=== PATIENT | female | born 1955 | race Caucasian/White ===

== ENCOUNTER 2020-09-20 08:30 | Inpatient (IN) | payer OTHER ==
[~2020-09-20] VITALS: Ht 167.6 cm; Wt 89.8 kg
[2020-09-20] MEDS ORDERED: ACID REDUCER20 M1 PO (10:54)
[2020-09-20] MEDS ORDERED: MULTIPLE VITAM1 EACH PO (10:55)
[2020-09-20] MEDS ORDERED: VITAMIN D PO (10:55)
[2020-09-23] MEDS ORDERED: OMEPRAZOLE20 MG (11:49)
[2020-09-23] MEDS ORDERED: VITAMIN D310 MC4 (11:49)
[2020-09-23] MEDS ORDERED: ATORVASTATIN CA20 MG (11:49)
[2020-09-25] MEDS ORDERED: HYOSCYAMINE0.125 M1 SL (11:48)
[2020-09-25] MEDS ORDERED: OXYC1TAB9 PO (11:48)
[2020-09-25] MEDS ORDERED: INTESTINEX680 M1 PO (11:49)
== END 2020-09-25 13:01 | disposition home or self-care (01) | DRG 330 ==
LOC: O/R 09-23 06:57 → SURH 09-23 06:57 → O/R 09-23 11:40 → SURH 09-23 12:15
PROVIDERS: ADMIT Surgery; ATTEND Surgery
PROC: 07BB4ZZ Excision of Mesenteric Lymphatic, Percutaneous Endoscopic Approach (ICD-10-PCS; 2020-09-23)
PROC: 0DTF4ZZ Resection of Right Large Intestine, Percutaneous Endoscopic Approach (ICD-10-PCS; principal; 2020-09-23 12:15)
DX: C18.0 Malignant neoplasm of cecum (principal); C18.1 Malignant neoplasm of appendix; D36.0 Benign neoplasm of lymph nodes; D50.0 Iron deficiency anemia secondary to blood loss (chronic); R19.5 Other fecal abnormalities; R59.0 Localized enlarged lymph nodes; K63.5 Polyp of colon

== ENCOUNTER 2020-11-01 06:00 | Day surgery (SDC) | payer OTHER ==
[~2020-11-01 06:00] MED LIST: ACID REDUCER20 M1 PO; ATORVASTATIN CA20 MG; HYOSCYAMINE0.125 M1 SL; INTESTINEX680 M1 PO; MULTIPLE VITAM1 EACH PO; OMEPRAZOLE20 MG; OXYC1TAB9 PO; VITAMIN D PO; VITAMIN D310 MC4
[2020-11-01] MEDS ORDERED: ULTRACET PO (13:37)
[2020-11-01] MEDS ORDERED: DICLOFENAC SODI75 MG PO (13:37)
== END 2020-11-01 14:25 | disposition home or self-care (01) ==
LOC: CIR.AMB 06:00
PROVIDERS: ATTEND Surgery
DX: C18.2 Malignant neoplasm of ascending colon (principal); Z20.822 Contact with and (suspected) exposure to COVID-19
CPT/HCPCS: 36561; C1751

== ENCOUNTER 2021-06-06 06:18 | Day surgery (SDC) | payer OTHER ==
[~2021-06-06 06:18] MED LIST changes: +DICLOFENAC SODI75 MG PO; +PREVACID15 M1 PO; +ULTRACET PO
[2021-06-06] MEDS ORDERED: ULTRACET PO (08:49)
== END 2021-06-06 11:20 | disposition home or self-care (01) ==
LOC: CIR.AMB 06:18
PROVIDERS: ATTEND Surgery
DX: C18.2 Malignant neoplasm of ascending colon (principal); Z20.822 Contact with and (suspected) exposure to COVID-19

== ENCOUNTER 2022-02-14 08:28 | Emergency (ER) | payer OTHER ==
[~2022-02-14] VITALS: Ht 152.4 cm; Wt 78.5 kg
== END 2022-02-14 09:41 | disposition home or self-care (01) ==
LOC: ER 08:28
DX: M75.52 Bursitis of left shoulder (principal); Z85.038 Personal history of other malignant neoplasm of large intestine

== ENCOUNTER 2024-01-28 08:25 | Emergency (ER) | payer OTHER ==
[~2024-01-28] VITALS: Ht 175.3 cm; Wt 10.4 kg
[2024-01-28] MEDS ORDERED: ACID REDUCER20 M1 (08:32)
[2024-01-28] MEDS ORDERED: GUAIFENESIN 200 MG/10 ML BLIST.PACK PO STA (09:42)
[2024-01-28] MEDS ORDERED: ACETAMINOPHEN 325 MG TABLET PO STA (09:42)
[2024-01-28] MEDS ORDERED: GUAIFENESIN/DEXTROMETHORPHAN 10ML BLIST.PACK PO ONE (09:49)
[2024-01-28] MEDS ORDERED: ACETAMINOPHEN 500 MG GEL..CAP PO ONE (09:49)
== END 2024-01-28 11:24 | disposition home or self-care (01) ==
LOC: ER 08:26
DX: U07.1 COVID-19 (principal); J00 Acute nasopharyngitis [common cold]